=== PATIENT | female | born 1985 | race African-American/Black ===

== ENCOUNTER 2023-06-20 21:05 | Emergency (ER) | payer MEDICAID, OTHER ==
[~2023-06-20] VITALS: Ht 177.8 cm; Wt 86.2 kg
[2023-06-20 21:28] VITALS: BP 105/83; TEMP 98
[2023-06-20 22:54] LABS: ALBUMIN 3.5 g/dL (3.4-5.0); BILIRUBIN,DIRECT 0.1 mg/dL (0.0-0.2); BILIRUBIN,TOTAL 0.5 mg/dL (0.2-1.0); TOTAL PROTEIN, SERUM 7.4 g/dL (6.4-8.2)
[2023-06-20 23:17] VITALS: O2SAT 98
== END 2023-06-20 23:18 | disposition home or self-care (01) ==
LOC: ER 21:11
DX: Z00.00 Encounter for general adult medical examination without abnormal findings (principal)
CPT/HCPCS: 36415; 80076-TC

== ENCOUNTER 2023-10-12 14:48 | Emergency (ER) | payer OTHER ==
[~2023-10-12] VITALS: Ht 177.8 cm; Wt 84.8 kg
[2023-10-12] MEDS ORDERED: MORPHINE SULFATE SOLN CONCENTRATED 20 MG/ML PO PRN (16:00)
[2023-10-12] MEDS ORDERED: OXYC5POW MC (16:31)
[2023-10-12] MEDS ORDERED: MORPHINE SULFATE SOLN CONCENTRATED 20 MG/ML ONE (16:46)
[2023-10-12 17:01] VITALS: BP 151/96; TEMP 98.3; O2SAT 98
== END 2023-10-12 17:02 | disposition home or self-care (01) ==
LOC: ER 14:52
DX: S90.32XA Contusion of left foot, initial encounter (principal); M79.671 Pain in right foot; G89.29 Other chronic pain; Z87.19 Personal history of other diseases of the digestive system; X58.XXXA Exposure to other specified factors, initial encounter; Y93.89 Activity, other specified; Y92.89 Other specified places as the place of occurrence of the external cause; Y99.8 Other external cause status
CPT/HCPCS: 73630-TC